=== PATIENT | female | born 1955 | race Caucasian/White ===

== ENCOUNTER → 2021-10-04 | Outpatient (CLI) | payer MEDICARE, OTHER ==
[~2021-10-04] VITALS: Ht 167 cm; Wt 100.0 kg
[~2021-10-04] MED LIST: CATHETER FLUSH 10 ML SYR IVP PRN; REGADENOSON 0.4 MG/5 ML SYR (LEXISCAN) IV ONE
[2021-10-04 09:24] VITALS: BP 176/105
--- NOTE | 2021-10-04 12:01 | Cardiology Stress Test Report ---
Stress Test Report Date of Procedure/Referring: Date of Procedure: Oct 04, 2021 PCP Chino Edmond DO Admitting Physician Admitting Physician: Attending Physician: Mk Kong MD Indications: CP Baseline Heart Rate: 58 Baseline Blood Pressure: Blood Pressure Systolic: 176 Blood Pressure Diastolic: 105 Baseline Vitals Vital Signs Date Time Temp Pulse Resp B/P (MAP) Pulse Ox O2 Delivery O2 Flow Rate FiO2 10/04/21 09:24 58 176/105 (128) 98 Baseline EKG: Baseline EKG: NSR Summary After explaining the procedure to the patient, she signed a consent and then brought to the stress nuclear laboratory. Patient received 0.4 mg Lexiscan for stress test, ECG, heart rate and blood pressure were monitored continuously. Resting and stress dose of radio tracer were injected, imaging was acquired and reviewed in short axis, horizontal long axis and vertical long axis views. TID: 0.97 SSS: 4 SDS: 4 EF: 69 1. Patient tolerated Lexiscan well 2. No significant ischemia or infarction on SPECT images 3. Normal left ventricular size, ejection fraction 69% Copy Copies To 1: [facility] [place] MK KONG MD Oct 04, 2021 12:01
== END ==
LOC: CARD 07:20
PROVIDERS: ATTEND Internal Medicine Cardiovascular Disease
DX: I25.10 Atherosclerotic heart disease of native coronary artery without angina pectoris (principal); I10 Essential (primary) hypertension
CPT/HCPCS: 78452; 93017; A9502

== ENCOUNTER → 2021-10-04 | Outpatient (CLI) | payer MEDICARE, OTHER ==
--- NOTE | 2021-10-04 12:41 | Diagnostic Imaging Report ---
PROCEDURE: CT right lower extremity without contrast. TECHNIQUE: Axially acquired CT was obtained through the right lower extremity without intravenous contrast. Coronal and sagittal reformations were also performed. Auto Exposure Controls were utilized during the CT exam to meet ALARA standards for radiation dose reduction. INDICATION: Right knee pain. Operative planning CT. COMPARISON: None available. FINDINGS: Axial imaging through the right knee shows tricompartmental degenerative changes. Small knee joint effusion. No concerning osseous or soft tissue abnormality. Subchondral cystic changes present in the proximal tibia. Additional limited axial imaging within the femoral shaft and right hip are unremarkable. Right ankle is grossly normal. IMPRESSION: 1. Operative planning CT has no unexpected abnormality. 2. Right knee tricompartmental osteoarthritis. Dictated by: Dictated on workstation # [id number]
== END ==
LOC: RAD 07:45
PROVIDERS: ATTEND Orthopaedic Surgery
DX: M17.11 Unilateral primary osteoarthritis, right knee (principal)
CPT/HCPCS: 73700

== ENCOUNTER → 2021-10-20 | Outpatient (CLI) | payer MEDICARE, OTHER ==
[~2021-10-20] MED LIST changes: +ATOR40TA PO; -CATHETER FLUSH 10 ML SYR IVP PRN; +ENZY1TAB4 PO; +ESTR1TAB27 PO; +HYDR25TA4 PO; +LEVO50TA PO; +MELA5CAP PO; +MONT10TA21 PO; +MULT-228 PO; +POTA8CAP20 PO; -REGADENOSON 0.4 MG/5 ML SYR (LEXISCAN) IV ONE; +SERT100T PO
--- NOTE | 2021-10-20 11:29 | Diagnostic Imaging Report ---
INDICATION: Preop knee arthroplasty, degenerative joint disease PA and lateral chest Heart size and pulmonary vascularity are normal. Lungs are clear. There are no effusions or pneumothoraces. There is a small sliding hiatal hernia. IMPRESSION: No acute abnormalities in the chest. Dictated by: Dictated on workstation # [id number]
[2021-10-20 11:31] VITALS: BP 138/85
[2021-10-20 11:33] LABS: BASOPHILS # (AUTO) 0.1 10^3/uL (0.0-0.1); BASOPHILS % (AUTO) 1 % (0-10); BILIRUBIN,URINE NEGATIVE (NEGATIVE); CLARITY,URINE CLEAR; COLOR,URINE YELLOW; EOSINOPHILS # (AUTO) 0.1 10^3/uL (0.0-0.3); EOSINOPHILS % (AUTO) 1 % (0-10); GLUCOSE, URINE (UA) NEGATIVE (NEGATIVE); HEMATOCRIT 44 % (35-52); HEMOGLOBIN 14.5 g/dL (11.5-16.0); KETONES,URINE NEGATIVE (NEGATIVE); LEUKOCYTE ESTERASE ,URINE NEGATIVE (NEGATIVE); LYMPHOCYTES # (AUTO) 1.2 10^3/uL (1.0-4.0); LYMPHOCYTES % (AUTO) 17 % (12-44); MEAN CORPUSCULAR HEMOGLOBIN 31 pg (25-34); MEAN CORPUSCULAR HGB CONC 33 g/dL (32-36); MEAN CORPUSCULAR VOLUME 94 fL (80-99); MEAN PLATELET VOLUME 9.9 fL (9.0-12.2); MONOCYTES # (AUTO) 0.4 10^3/uL (0.0-1.0); MONOCYTES % (AUTO) 5 % (0-12); NEUTROPHILS # (AUTO) 5.7 10^3/uL (1.8-7.8); NEUTROPHILS % (AUTO) 76 % (42-75); NITRITE,URINE NEGATIVE (NEGATIVE); PH,URINE 5.5 (5-9); PLATELET COUNT 225 10^3/uL (130-400); PROTEIN,URINE NEGATIVE (NEGATIVE); WHITE BLOOD COUNT 7.5 10^3/uL (4.3-11.0)
[2021-10-20 11:46] LABS: BACTERIA,URINE NEGATIVE /HPF; INR 0.9 (0.8-1.4); PROTHROMBIN TIME PATIENT 12.3 SEC (12.2-14.7); SQUAMOUS EPITHELIAL CELL,UR RARE /HPF
[2021-10-20 11:53] LABS: ALBUMIN 3.9 GM/DL (3.2-4.5); BILIRUBIN,TOTAL 0.6 MG/DL (0.1-1.0); CALCIUM 9.8 MG/DL (8.5-10.1); CREATININE SERUM 0.76 MG/DL (0.60-1.30); POTASSIUM 3.5 MMOL/L (3.6-5.0); TOTAL PROTEIN 7.2 GM/DL (6.4-8.2)
[2021-10-20 12:02] LABS: ERYTHROCYTE SEDIMENTATION RATE 24 MM/HR (0-30)
== END ==
LOC: PREOP 09:51
PROVIDERS: ATTEND Orthopaedic Surgery
DX: Z01.818 Encounter for other preprocedural examination (principal); M17.11 Unilateral primary osteoarthritis, right knee
CPT/HCPCS: 36415; 71046; 80053; 81000; 85025; 85610; 85652; 86850; 86900; 86901; 87081; 93005

== ENCOUNTER 2021-10-27 07:20 | Inpatient (IN) | payer MEDICARE, OTHER ==
--- NOTE | 2021-10-21 07:14 | HISTORY AND PHYSICAL ---
DATE OF SERVICE: ADMISSION HISTORY AND PHYSICAL DATE OF ADMISSION: 10/27/2021. This will be for inpatient admission on 10/27/2021 for right total knee arthroplasty. The patient will require regular inpatient admission due to the need for pain management, physical therapy and gait abnormalities. HISTORY OF PRESENT ILLNESS: The patient is a 66-year-old female with a longstanding progressive right knee pain. She reports pain on the medial aspect of her right knee. She reports pain with activities. She has undergone treatment with injections without relief of her symptoms. Due to failure to improve with the conservative measures, the patient elected to proceed with surgical intervention. REVIEW OF SYSTEMS: No chest pain, no shortness of breath, and no dysuria. PAST MEDICAL HISTORY: Reflux, hypertension, hemorrhoids, hiatal hernia, thyroid disease, anemia, diarrhea, diverticulitis, allergies abdominal pain, hypercholesterolemia, hypokalemia, claudication, menopause, and myocardial infarction. PAST SURGICAL HISTORY: Hysterectomy, EGD, colonoscopy, and laparoscopy. SOCIAL HISTORY: The patient denies tobacco use. She drinks alcohol rarely. FAMILY HISTORY: Significant for ischemic heart disease, lupus, and stroke. PRIMARY CARE PROVIDER: Chino Edmond. MEDICATIONS: Estrace, Zoloft, potassium, multivitamin, ibuprofen, hydrochlorothiazide, atorvastatin, montelukast, and Synthroid. ALLERGIES: STEROIDS. PHYSICAL EXAMINATION: GENERAL: The patient is well-developed, well-nourished, and in no acute distress. HEENT: Normocephalic and atraumatic. Pupils are equal, round, and reactive to light. Oropharynx is clear. NECK: Supple with no lymphadenopathy. LUNGS: Clear to auscultation bilaterally. HEART: Regular rate and rhythm. ABDOMEN: Soft, nontender, and nondistended. EXTREMITIES: The right knee demonstrates tenderness over the medial femoral condyle. She has pain medially with José's. There is no varus valgus laxity. Negative anterior and posterior drawer. She is also tender along her lateral joint line. Range of motion is 0/3/120. She has patellofemoral crepitus and pain with patellar loading. RADIOGRAPHS: Reveal complete loss of lateral and patellofemoral joint spaces. IMPRESSION: Due to functional impairment and failure to improve with conservative measures, the patient elected to proceed with surgical intervention. The risks, benefits, options, ramifications, and recovery were discussed with the patient. She understands and wished to proceed for a right total knee arthroplasty. Job ID: [id number] DocumentID: [id number] Dictated Date: 10/11/2021 10:31:35 Flight Test Shop Mechanic Date: 10/11/2021 11:07:18 Dictated By: LETY NIÑO MD
[2021-10-27] VITALS (10 sets, daily range): BP systolic 133–198; BP diastolic 81–99
[~2021-10-27] VITALS: Ht 167.7 cm; Wt 105.4 kg
[2021-10-27] MEDS ORDERED: diphenhydrAMINE 50 MG/ML INJ (BENADRYL) IVP PRN (07:30)
[2021-10-27] MEDS ORDERED: morphine PCA 100 MG/100 ML BAG IV PRN (07:30)
[2021-10-27] MEDS ORDERED: ONDANSETRON 4 MG/2 ML (SDV) Z0FRAN IVP PRN (07:30)
--- NOTE | 2021-10-27 07:33 | Progress Note-Pre Operative ---
Pre-Operative Progress Note Date of Available H&P: Oct 27, 2021 Date H&P Reviewed: Oct 27, 2021 Time H&P Reviewed: 07:33 Changes from last HP none Pre-Operative Diagnosis: right knee primary osteoarthritis LETY NIÑO MD Oct 27, 2021 07:33
--- NOTE | 2021-10-27 07:34 | Progress Note-Post Operative ---
Post-Operative Progess Note Surgeon (s)/Back Pad Inspector (s) Surgeon LETY NIÑO MD Back Pad Inspector: Gabino Rosenbaum Pre-Operative Diagnosis right knee primary osteoarthritis Post-Operative Diagnosis right knee primary osteoarthritis Procedure & Operative Findings Date of Procedure 10/27/21 Procedure Performed/Findings right total knee arthroplasty Anesthesia Type GETA Estimated Blood Loss Estimated blood loss (mL): minimal Specimens/Packing Specimens Removed none Packing: none LETY NIÑO MD Oct 27, 2021 07:34
--- NOTE | 2021-10-27 07:36 | D/C HH Face to Face Order ---
D/C Face to Face Orders Reconcile Patient Problems Problems Reviewed?: Yes Instructions for Patient Via [facility], Patient Instructions/FollowUp: three weeks Physician to follow Patient: three weeks Discharge Diet for Home: Regular Diet Patient Data-Allergies,Ht & Wt Patient Allergies: Coded Allergies: prednisone (Unverified Allergy, Unknown, 10/04/21) Home Health Need/Face to Face Date of Face to Face: Oct 27, 2021 Clinical Findings: Muscle weakness, Pain with ambulation, Unsteady gait I have seen Pt [id number]: Yes Discharged To: Home Diagnosis/Conditions: right total knee arthroplasty Patient is Homebound due to: Muscle weakness, Pain w/ambulation Homebound Status Due to the above stated illness, injury or surgical procedure (medical condition or diagnosis) and associated clinical findings, the patient is homebound because of his/her inability to leave home except with aid of a supportive device and/or person AND leaving the home requires a considerable and taxing effort or is medically contraindicated. Pt req the following assistanc: Walker Home Health Nursing Orders Home Health Services Order: Physical Therapy-Evaluate & Treat DC right knee bria and apply steri strips 11/10/21 Therapy Orders Therapy Orders: Physical Therapy, PT to assess for OT Therapy Specific Orders: Eval assistive deivces, Teach enviro modifications/safety, Gait training, Increase strength/endurance, Provider torsten ntenance therapy, Restore ROM Certify Stmt I certify that this patient is under my care and that I, a nurse practitioner or a physician; a cement tester assistant working with me, had a face to face encounter that - meets the physician face to face encounter requirements with this patient as dated. LETY NIÑO MD Oct 27, 2021 07:36
[2021-10-27] MEDS ORDERED: INTRA-ARTICULAR IU ONE ×5 (07:45)
[2021-10-27] MEDS ORDERED: CEFUROXIME INJECTION 1,500 MG in NS (IVPB) 50 ML IV ONE (08:00)
[2021-10-27] MEDS ORDERED: LACTATED RINGERS 1,000 ML IV PRN (08:00)
[2021-10-27] MEDS ORDERED: fentaNYL INJ 100 MCG/2 ML AMP ONE (08:02)
[2021-10-27] MEDS ORDERED: ROPIVACAINE 5MG/ML 30ML VIAL ONE (08:02)
[2021-10-27] MEDS ORDERED: proPOfol 200 MG/20 ML (DIPRIVAN) VIAL IV ONE (08:02)
[2021-10-27] MEDS ORDERED: LIDOCAINE PF 2% 5 ML (XYLOCAINE) VIAL ONE (08:02)
[2021-10-27] MEDS ORDERED: MIDAZOLAM 2 MG/2 ML (VERSED) VIAL ONE (08:03)
[2021-10-27] MEDS: SENNA W/DOCUSATE (SENOKOT S) TABLET PO SCH ×2 (09:00→20:50)
[2021-10-27] MEDS ORDERED: ONDANSETRON 4 MG/2 ML (SDV) Z0FRAN ONE (09:15)
[2021-10-27] MEDS ORDERED: TRANEXAMIC ACID 100 MG/ML 10 ML INJECTION ONE (09:36)
[2021-10-27] MEDS ORDERED: HYDROmorphone 2 MG/ML VIAL (DILAUDID) ONE (09:50)
[2021-10-27] MEDS ORDERED: GLYCOPYRROLATE 0.2 MG/ML (ROBINUL) 2 ML VIAL ONE (09:56)
[2021-10-27] MEDS ORDERED: SEVOFLURANE (ULTANE) 15 ML INHAL SOLN ONE (10:43)
[2021-10-27] MEDS ORDERED: HYDROmorphone 2 MG/ML VIAL (DILAUDID) IV ONE (11:00)
[2021-10-27] MEDS ORDERED: morphine INJ 10 MG/ML 1ML (SYR OR VIAL) IVP ONE (11:00)
[2021-10-27] MEDS: ONDANSETRON 4 MG/2 ML (SDV) Z0FRAN IVP PRN ×2 (11:11→11:33)
[2021-10-27] MEDS: NS IV 1000 ML 1,000 ML IV SCH (12:08)
--- NOTE | 2021-10-27 12:37 | Progress Note ---
Standard Progress Note Progress Notes/Assess & Plan Date Seen by a Provider: Oct 27, 2021 Time Seen by a Provider: 12:36 Progress/Assessment & Plan post op check no complaints RLE--2 plus DP pulse with brisk cap refill intact DF and PF of toes and ankle sensation intac to light touch throughout s/p R TKA mobilize as able LETY NIÑO MD Oct 27, 2021 12:37
[2021-10-27] MEDS ORDERED: hydrALAZINE (APESOLINE) 20 MG/ML VIAL IV PRN (12:45)
--- NOTE | 2021-10-27 13:07 | Diagnostic Imaging Report ---
INDICATION: Status post knee replacement. COMPARISON: None. FINDINGS: Multiple radiographic views of the right knee joint demonstrate no acute fracture or dislocation. No focal osseous lesions are seen. No significant joint effusion is seen. The surrounding soft tissue structures are unremarkable. There are no radiopaque foreign bodies. Surgical skin bria are noted. IMPRESSION: 1. No acute fractures or dislocations of the right knee joint. Dictated by: Dictated on workstation # [id number]
--- NOTE | 2021-10-27 14:13 | Physical Therapy Evaluation ---
PT Evaluation-General Medical Diagnosis Admission Date Oct 27, 2021 at 07:20 Medical Diagnosis: right TKA Onset Date: Oct 27, 2021 Therapy Diagnosis Therapy Diagnosis: impaired mobility, ROM Weight Bear Status Right Lower Extremity: Right Weight Bearing/Tolerated Referral Physician: Robi Reason for Referral: Evaluation/Treatment Medical History Additional Medical History PAST MEDICAL HISTORY: Reflux, hypertension, hemorrhoids, hiatal hernia, thyroid disease, anemia, diarrhea, diverticulitis, allergies abdominal pain, hypercholesterolemia, hypokalemia, claudication, menopause, and myocardial infarction. PAST SURGICAL HISTORY: Hysterectomy, EGD, colonoscopy, and laparoscopy. Reviewed History: Yes Social History Current Living Status: Spouse Entry Into Home: Level Entry Patient states that there is one step to enter home, says there is only a threshold to get over. Prior Prior Level of Function SCALE: Activities may be completed with or without assistive devices. 8-Tnlasiaxip-btmcorn completes the activity by him/herself with no assistance from a helper. 5-Set-up or Clean-up Assistance-helper sets up or cleans up; patient completes activity. [place] assists only prior to or following the activity. 4-Supervision or Touching Assistance-helper provides verbal cues and/or touching/steadying and/or contact guard assistance as patient completes activity. Assistance may be provided throughout the activity or intermittently. 3-Partial/Moderate Assistance-helper does LESS THAN HALF the effort. [place] lifts, holds or supports trunk or limbs, but provides less than half the effort. 2-Substantial/Maximal Assistance-helper does MORE THAN HALF the effort. [place] lifts or holds trunk or limbs and provides more than half the effort. 2-Ijxljilvj-cbbgny does ALL the effort. Patient does none of the effort to complete the activity. Or, the assistance of 2 or more helpers is required for the patient to complete the activity. If activity was not attempted, code reason: 7-Patient Refused. 9-Not Applicable-not attempted and the patient did not perform the activity before the current illness, exacerbation or injury. 10-Not Attempted due to Environmental Limitations-(lack of equipment, weather restraints, etc.). 88-Not Attempted due to Medical Conditions or Safety Concerns. Bed Mobility: 6 Transfers (B,C,W/C): 6 Gait: 6 Stairs: 6 Indoor Mobility (Ambulation): Independent Stairs: Independent PT Evaluation-Current Subjective Patient in bed pre tx, agrees to PT, has 2/10 pain in right knee. Pt/Family Goals to be independent at home Objective Patient Orientation: Person, Place, Situation Attachments: IV ROM/Strength ROM Lower Extremities right knee extension +3 degrees, flexion 75 degrees Sensory Vision: Wears Glasses Hearing: Functional Sensation Right Lower Extremit: Intact Sensation Left Lower Extremity: Intact Transfers Roll Left to Right (QC): 4 Sit to Lying (QC): 4 Lying to Sitting/Side of Bed(Q: 4 Sit to Stand (QC): 3 Chair/Dhs-aw-Stzmi Xfer(QC): 4 Toilet Transfer (QC): 4 Patient performs rolling and supine <-> sit with SBA, sit <-> stand min assist, transfers CGA. Patient sits to the side of the bed and stands with assist, ambulates to the restroom to the toilet, when done, she ambulates back to the bed, sits, and lays back down. Gait Does the Patient Walk?: Yes Mode of Locomotion: Walk Anticipated Mode of Locomotion: Walk Walk 10 feet (QC): 4 Distance: 10'x2 Gait Assistive Device: FWW Comments/Gait Description CGA, antalgic, slow, decreased weight bearing on right leg, poor step through Balance Sitting Static: Normal Sitting Dynamic: Normal Standing Static: Fair Standing Dynamic: Fair Treatment RLE total knee protocol x10 (AP, QS, HS, SAQ, SLR) Assessment/Needs Patient in bed post tx with nurse call, phone, tray, all needs met. Patient has impaired mobility, ROM, needs some assist to stand. Rehab Potential: Fair PT Usp Goals Employer Relations Representative Goals PT Employer Relations Representative Goals Time Frame: Nov 03, 2021 Roll Left & Right (QC): 6 Sit to Lying (QC): 6 Lying-Sitting on Side/Bed(QC): 6 Sit to Stand (QC): 6 Chair/Jlt-jd-Lpefg Xfer(QC): 6 Walk 10 feet (QC): 6 Walk 50ft with 2 Turns (QC): 6 Walk 150 ft (QC): 6 PT Plan Problem List Problem List: Activity Tolerance, Functional Strength, Safety, Balance, Gait, Transfer, Bed Mobility, ROM Treatment/Plan Treatment Plan: Continue Plan of Care Treatment Plan: Bed Mobility, Education, Functional Activity Ryan, Functional Strength, Gait, Safety, Therapeutic Exercise, Transfers Treatment Duration: Nov 03, 2021 Frequency: 11 times per week Estimated Hrs Per Day: .25 hour per day Patient and/or Family Agrees t: Yes Safety Risks/Education Patient Education: Gait Training, Transfer Techniques, Correct Positioning, Safety Issues Teaching Recipient: Patient Teaching Methods: Demonstration, Discussion Response to Teaching: Reinforcement Needed Discharge Recommendations Plan Patient will perform bed mobility and transfer training, balance and endurance training, functional strengthening, stair training, gait training, and education, to improve functional mobility and independence at home. Therapy Discharge Recommendati: Home & Family, Post Acute PT Time/GCodes Time In: 1330 Time Out: 1350 Total Billed Treatment Time: 20 Total Billed Treatment 1 visit EVL 20' TIANNA BAUTISTA PT Oct 27, 2021 14:13
--- NOTE | 2021-10-27 15:34 | OPERATIVE REPORT ---
DATE OF SERVICE: 10/27/2021 PREOPERATIVE DIAGNOSIS: Right knee primary osteoarthritis. POSTOPERATIVE DIAGNOSIS: Right knee primary osteoarthritis. PROCEDURE: Right total knee arthroplasty. SURGEON: Cade Barclay MD BLACK TOP PAVER OPERATOR: Gabino Rosenbaum, who assisted throughout the procedure and closed the incision. ANESTHESIA: General endotracheal by Elliott Hutchinson CRNA. TOURNIQUET TIME: Approximately 60 minutes at 300 mmHg. ESTIMATED BLOOD LOSS: Minimal. DRAINS: None. COMPLICATIONS: None. POSTOPERATIVE PLAN: Routine protocol. The patient was transferred to the recovery room awake and stable condition. MATERIALS: Microport cemented size 3 femur, cemented size 3 tibia with 17 mm insert and a cemented 29 patellar button. STATEMENT OF MEDICAL NECESSITY: The patient is a 66-year-old female with longstanding progressive right knee pain. She has undergone treatment with injections, anti-inflammatories and rest without relief. Radiographs revealed severe tricompartmental osteoarthritis. The patient was overweight and was cautioned that she was at higher risk of complications due to her weight. Due to functional impairment and failure to improve with conservative measures, the patient elected to proceed with surgical intervention. DESCRIPTION OF PROCEDURE: After risks and benefits of the procedure were discussed and questions were answered, an informed consent was signed and placed on chart, the operative site was confirmed in the preoperative holding area initialed by the surgeon. The patient was then transferred to the operating room and after adequate levels of general endotracheal anesthetic were obtained, a timeout was called, confirming the operative site. The right lower extremity was prepped and draped in the usual sterile fashion with the leg elevated and the knee flexed. The tourniquet was inflated to 300 mmHg. Standard anterior approach was utilized. Hemostasis was obtained with cautery and medial parapatellar arthrotomy was performed leaving 1 cm cuff on the patella for later reattachment. A portion of the fat pad was resected. The ACL was resected. The CT degenerated custom block was placed on the distal femur. Excellent fit was obtained. This was then pinned into position and the distal cut was made. The cutting block was placed parallel to the epicondylar axis and cuts were made from posterior to anterior. Subperiosteal release was then carefully performed on the posterior distal femur, being careful to stay on the bony surface. The tibial cutting block was placed and again this had excellent coverage. This was pinned into position and the tibial cut was made. The three baseplate was placed, pinned into position and prepared with the drill and keel punch. The femoral trial was placed. The trochlear cut was made, and the patella was then prepared by resecting 10 mm off the undersurface. The peg guide was placed, and peg holes were drilled. A 17 mm tibial insert provided full extension. Her flexion was only inhibited by her pannus. There was no anterior/posterior or medial/lateral laxity in flexion or extension and the patella tracked well. The trials were removed. The joint was irrigated with pulse lavage. The periarticular block was placed in the posterior capsule, medial and lateral retinaculum extensor mechanism and subcutaneous tissues. The bone ends were irrigated and dried. The tibial baseplate was cemented into position. Excessive cement was removed, the superior surface was irrigated and dried and the polyethylene insert was placed. Distal femur was irrigated and dried and the femoral prosthesis was cemented into position. Excessive cement was removed. The knee was brought out into full extension until the cement had cured. The undersurface of patella was irrigated and dried and the patellar button was cemented into position. Excessive cement was removed. Once the cement had cured, the knee was taken through a range of motion. Full extension was easily obtained, 120 degrees of flexion was obtained against gravity. The patella tracked well. There was no anterior/posterior or medial/lateral laxity in flexion or extension. The joint was further irrigated with pulse lavage. Arthrotomy was closed with #2 Tevdek in zotwkk-rm-etqec interrupted fashion. The knee was flexed and repair was stable. The subcutaneous tissues were irrigated using a total of 6 liters throughout the procedure. A 0 Vicryl was used for deep subcutaneous layer, 2-0 Vicryl for the superficial subcutaneous layer, bria used on the skin. A soft dressing was applied and the patient was transferred to the recovery room awake and in stable condition. Job ID: [id number] DocumentID: [id number] Dictated Date: 10/27/2021 10:50:51 Principal Research Economist Date: 10/27/2021 15:33:09 Dictated By: CADE BARCLAY MD
[2021-10-27] MEDS: CEFUROXIME INJECTION 750 MG in NS (IVPB) 50 ML IV SCH ×2 (17:02→18:04)
--- NOTE | 2021-10-27 19:58 | Consultation - Hospitalist ---
HPI History of Present Illness: HPI/Chief Complaint Lalo Monet is a 66 year old female with PMH HTN, HLD, hypothyroidism, depression, arthritis, who presented for total knee arthroplasty. She was seen post-operatively. She is tired. She is having some pain. She denies fevers and chills. She denies shortness of breath and cough. She denies chest pain. She denies abdominal pain. She denies nausea and vomiting. Source: patient Exam Limitations: no limitations Date Seen 10/27/21 Attending Physician Chino Edmond DO PCP Admitting Physician: Cade Barclay MD Attending Physician: Cade Barclay MD Referring Physician Date of Admission Oct 27, 2021 at 07:20 Home Medications & Allergies Home Medications Reviewed patient Home Medication Reconciliation performed by pharmacy medication reconciliations trim technician and/or nursing. Patients Allergies have been reviewed. Allergies Allergies Coded Allergies prednisone (Unverified Allergy, Unknown, 10/04/21) Past Lhzgotx-Elvmpb-Lehvwr Hx Patient Social History Tobacco Use?: No Substance use?: No Alcohol Use?: Yes Pt feels they are or have been: No Seasonal Allergies Seasonal Allergies: No Current Status status: No status: No Advance Directives: No Communicates: Verbally Primary Language: Citizen Of [place] Preferred Spoken Language: Citizen Of [place] Is interpretation needed?: No Sensory deficits: Vision impairment Past Medical History Surgeries: Gallbladder, Hysterectomy, Tubal Ligation Hypertension Hiatal Hernia Arthritis Sleep Difficulties, Anxiety, Depression Blood Disorders: No (BURISES EASILY) Family Medical History No Pertinent Family Hx Review of Systems Constitutional: no symptoms reported EENTM: no symptoms reported Respiratory: no symptoms reported Cardiovascular: no symptoms reported Gastrointestinal: no symptoms reported Physical Exam Physical Exam Vital Signs Vital Signs - First Documented Capillary Refill : Less Than 3 Seconds Height, Weight, BMI Height: '" Weight: lbs. oz. kg; 37.47 BMI Method: General Appearance: No Apparent Distress, Obese HEENT: PERRL/EOMI, Pharynx Normal Respiratory: Lungs Clear, No Respiratory Distress Cardiovascular: Regular Rate, Rhythm, No Murmur Gastrointestinal: Normal Bowel Sounds, Non Tender, Soft Extremity: Normal Inspection, No Pedal Edema Neurologic/Psychiatric: Alert, Normal Mood/Affect Skin: Normal Color, Warm/Dry Results Results/Procedures Labs Patient resulted labs reviewed. Imaging: Reviewed Imaging Report Assessment/Plan Assessment and Plan Assess & Plan/Chief Complaint Right total knee arthroplasty Right knee osteoarthritis Ortho primary s/p TKA 10/27 Pain regimen Bowel regimen Incentive spirometry PT/OT HTN HLD Hypothyroidism Depression Continue home meds DVT prophylaxis: Lovenox Diagnosis/Problems Diagnosis/Problems (1) Osteoarthritis Status: Acute Qualifiers: Osteoarthritis location: knee Osteoarthritis type: primary Laterality: right Qualified Codes: M17.11 - Unilateral primary osteoarthritis, right knee (2) S/P total knee arthroplasty Status: Acute Qualifiers: Laterality: right Qualified Codes: Z96.651 - Presence of right artificial knee joint (3) HTN (hypertension) Status: Chronic (4) HLD (hyperlipidemia) Status: Chronic (5) Depression Status: Chronic (6) Hypothyroidism Status: Chronic (7) Obesity Status: Chronic PAOLA MENDOZA MD Oct 27, 2021 19:58
[2021-10-28] VITALS (7 sets, daily range): BP systolic 120–168; BP diastolic 71–84
[2021-10-28] MEDS: NS IV 1000 ML 1,000 ML IV SCH ×3 (01:01→14:15)
[2021-10-28] MEDS: CEFUROXIME INJECTION 750 MG in NS (IVPB) 50 ML IV SCH (01:01)
[2021-10-28] MEDS: MULTIVIT W/MINERALS TAB (THERAGRAN M) PO SCH (05:43)
[2021-10-28] MEDS: LEVOTHYROXINE 50 MCG (LEVOTHROID) TAB PO SCH (05:43)
[2021-10-28 05:58] LABS: HEMOGLOBIN 12.5 g/dL (11.5-16.0)
--- NOTE | 2021-10-28 07:43 | Progress Note ---
Standard Progress Note Progress Notes/Assess & Plan Date Seen by a Provider: Oct 28, 2021 Time Seen by a Provider: 07:43 Progress/Assessment & Plan post op check no complaints RLE--2 plus DP pulse with brisk cap refill intact DF and PF of toes and ankle sensation intac to light touch throughout s/p R TKA mobilize as able Final Diagnosis no complaints Vital Signs Date Time Temp Pulse Resp B/P (MAP) Pulse Ox O2 Delivery O2 Flow Rate FiO2 10/28/21 06:43 Room Air 0.00 10/28/21 04:10 36.8 86 18 131/78 (95) 90 Room Air 10/28/21 00:21 36.8 84 18 137/84 (101) 92 Room Air 10/27/21 20:38 Room Air 10/27/21 19:54 36.5 81 20 133/82 (99) 91 Room Air 10/27/21 15:39 36.6 76 18 136/84 (101) 95 Room Air 10/27/21 15:22 Room Air 10/27/21 12:36 36.2 82 18 164/96 (118) 98 Room Air 10/27/21 11:45 Nasal Cannula 2.00 10/27/21 11:36 36.1 14 165/86 (112) 98 Nasal Cannula 2.00 10/27/21 11:30 18 177/93 (121) 97 Nasal Cannula 2.00 10/27/21 11:30 Nasal Cannula 2.00 10/27/21 11:20 12 160/90 (113) 97 OxyMask 10.00 10/27/21 11:15 OxyMask 10.00 10/27/21 11:10 12 181/98 (125) 95 OxyMask 10.00 10/27/21 11:00 13 190/99 (129) 94 OxyMask 10.00 10/27/21 10:50 OxyMask 10.00 10/27/21 10:50 36.1 16 198/98 (131) 93 OxyMask 10.00 10/27/21 07:45 96 Room Air 10/27/21 07:45 36.3 67 18 146/81 (102) 96 Room Air I & O 10/28/21 06:59 Intake Total 1520 ml Output Total 0 ml Balance 1520 ml Laboratory Tests Test 10/28/21 05:49 Range/Units Hemoglobin 12.5 11.5-16.0 g/dL Hematocrit 39 35-52 % RLE--dressing intact. NVI no calf tenderness s/p RTKA PT/OT LETY NÑIO MD Oct 28, 2021 07:43
--- NOTE | 2021-10-28 07:51 | Anesthesia-General Post-Op ---
General Patient Condition Mental Status/LOC: Same as Preop Cardiovascular: Satisfactory Nausea/Vomiting: Absent Respiratory: Satisfactory Pain: Controlled Complications: Absent Post Op Complications Complications None Follow Up Care/Instructions Patient Instructions None needed. Anesthesia/Patient Condition Patient Condition Patient is doing well, no complaints, stable vital signs, no apparent adverse anesthesia problems. No complications reported per nursing. ALY DORANTES CRNA Oct 28, 2021 07:51
[2021-10-28] MEDS: MONTELUKAST 10 MG (SINGULAIR) TAB PO SCH (08:53)
[2021-10-28] MEDS: ENOXAPARIN INJECTION 30 MG/0.3 ML SYR SC SCH ×2 (08:53→20:00)
[2021-10-28] MEDS: ESTRADIOL 1 MG TAB (ESTRACE) PO SCH (08:53)
[2021-10-28] MEDS: SERTRALINE 100 MG (ZOLOFT) TAB PO SCH (08:53)
[2021-10-28] MEDS: SENNA W/DOCUSATE (SENOKOT S) TABLET PO SCH ×2 (08:54→19:59)
[2021-10-28] MEDS: ASPIRIN E.C. 81 MG (ECOTRIN) TAB PO SCH (08:54)
[2021-10-28] MEDS: oxyCODONE/APAP 5/325MG (PERCOCET 5) TABLET PO PRN ×4 (09:00→17:25)
--- NOTE | 2021-10-28 09:57 | Physical Therapy Daily Note ---
PT Daily Note-Current Subjective Patient agrees to PT. Pain Numeric Pain Scale: 5-Moderate Pain Location: Right Location Body Site: Knee Pain Description: Acute Comment: with meds issued Mental Status Patient Orientation: Normal For Age Attachments: Polar Pack, IV Transfers SCALE: Activities may be completed with or without assistive devices. 5-Iutqhmndem-eyjufkt completes the activity by him/herself with no assistance from a helper. 5-Set-up or Clean-up Assistance-helper sets up or cleans up; patient completes activity. [place] assists only prior to or following the activity. 4-Supervision or Touching Assistance-helper provides verbal cues and/or touching/steadying and/or contact guard assistance as patient completes activity. Assistance may be provided throughout the activity or intermittently. 3-Partial/Moderate Assistance-helper does LESS THAN HALF the effort. [place] lifts, holds or supports trunk or limbs, but provides less than half the effort. 2-Substantial/Maximal Assistance-helper does MORE THAN HALF the effort. [place] lifts or holds trunk or limbs and provides more than half the effort. 4-Nmhwolkpv-uhklui does ALL the effort. Patient does none of the effort to complete the activity. Or, the assistance of 2 or more helpers is required for the patient to complete the activity. If activity was not attempted, code reason: 7-Patient Refused. 9-Not Applicable-not attempted and the patient did not perform the activity before the current illness, exacerbation or injury. 10-Not Attempted due to Environmental Limitations-(lack of equipment, weather restraints, etc.). 88-Not Attempted due to Medical Conditions or Safety Concerns. Lying to Sitting/Side of Bed(Q: 6 Sit to Stand (QC): 4 Chair/Yhd-xx-Gxpyq Xfer(QC): 4 Weight Bearing Right Lower Extremity: Right Weight Bearing/Tolerated Gait Training Distance: 150' Walk 10 feet (QC): 4 Walk 50 ft with 2 Turns(QC): 4 Walk 150 ft (QC): 4 Gait Assistive Device: FWW slow, antalgic, step to gait pattern Exercises Supine Ex: Ankle pumps, Quad Set, Heel Slides, Straight leg raise Supine Reps: 15 Seated Therapy Exercises: Long arc quads Seated Reps: 15 Assessment Patient progressing with treatment plan. Improving slow with right knee flexion ROM. Increase activity and ROM right knee as tolerated by patient. PT Usp Goals Usp Goals PT Electrogalvanizing Machine Operator Goals Time Frame: Nov 03, 2021 Roll Left & Right (QC): 6 Sit to Lying (QC): 6 Lying-Sitting on Side/Bed(QC): 6 Sit to Stand (QC): 6 Chair/Ntk-eo-Pfwwg Xfer(QC): 6 Walk 10 feet (QC): 6 Walk 50ft with 2 Turns (QC): 6 Walk 150 ft (QC): 6 PT Plan Treatment/Plan Treatment Plan: Continue Plan of Care Treatment Plan: Bed Mobility, Education, Functional Activity Ryan, Functional Strength, Gait, Safety, Therapeutic Exercise, Transfers Treatment Duration: Nov 03, 2021 Frequency: 11 times per week Estimated Hrs Per Day: .25 hour per day Patient and/or Family Agrees t: Yes Time/GCodes Time In: 855 Time Out: 918 Total Billed Treatment Time: 23 Total Billed Treatment 1 visit EX 13 min GT 10 min SUSAN HUERTA PT Oct 28, 2021 09:57
--- NOTE | 2021-10-28 10:57 | Occupational Therapy Eval ---
OT Evaluation-General/PLF Medical Diagnosis Admission Date Oct 27, 2021 at 07:20 Medical Diagnosis: right TKA Onset Date: Oct 27, 2021 Therapy Diagnosis Therapy Diagnosis: n/a Referral Physician: Robi Referral Reason: Evaluation/Treatment Medical History Additional Medical History HTN, hiatal hernia, thyroid disease, anemia, diarrhea, diverticulitis, allergies, [place] Current History s/p R TKA 10/27/21 Social History Current Living Status: Spouse Entry Into Home: Level Entry ADL-Prior Level of Function SCALE: Activities may be completed with or without assistive devices. 2-Rysaxzhffr-arhrfss completes the activity by him/herself with no assistance from a helper. 5-Set-up or Clean-up Assistance-helper sets up or cleans up; patient completes activity. [place] assists only prior to or following the activity. 4-Supervision or Touching Assistance-helper provides verbal cues and/or touching/steadying and/or contact guard assistance as patient completes activity. Assistance may be provided throughout the activity or intermittently. 3-Partial/Moderate Assistance-helper does LESS THAN HALF the effort. [place] lifts, holds or supports trunk or limbs, but provides less than half the effort. 2-Substantial/Maximal Assistance-helper does MORE THAN HALF the effort. [place] lifts or holds trunk or limbs and provides more than half the effort. 5-Hcxqxriwx-kljhxw does ALL the effort. Patient does none of the effort to complete the activity. Or, the assistance of 2 or more helpers is required for the patient to complete the activity. If activity was not attempted, code reason: 7-Patient Refused. 9-Not Applicable-not attempted and the patient did not perform the activity before the current illness, exacerbation or injury. 10-Not Attempted due to Environmental Limitations-(lack of equipment, weather restraints, etc.). 88-Not Attempted due to Medical Conditions or Safety Concerns. ADL PLOF Comments Pt reports IND with ADLs and functional mobility at [facility], no AD. She has a walk in shower with [place] Self Care: Independent Functional Cognition: Independent OT Current Status Subjective Pt and state they feel comfortable with pt's ability to complete ADLS, and decline further OT services at this time. Mental Status/Objective Patient Orientation: Person, Place, Situation Attachments: IV, Oxygen, Polar Pack Current Upper Extremity ROM WFL Upper Extremity Strength WFL ADL-Treatment Eating (QC): 6 On/Off Footwear (QC): 6 Toileting Hygiene (QC): 6 Other Treatments Pt in recliner, spouse present. Pt demo'd ability to doff/don gripper socks independently. Pt and report no concerns with pt returning home, if pt has any difficulties with ADLs, her spouse can assist. Pt used FWW to transfer into bathroom and onto toilet, SBA, OT managed IV pole. Pt completed toileting independently, then stood at sink to wash hands before returning to EOB. Pt transferred supine and polar pack applied to RLE. Post tx, pt in bed, call light in reach and al needs met. Education OT Patient Education: Correct positioning, Energy conservation, Modified ADL techniques, Progress toward Goal/Update tx plan, Purpose of tx/functional activities, Rehab process Teaching Recipient: Patient Teaching Methods: Discussion Response to Teaching: Verbalize Understanding OT Halfway Goals Kiln Firer Helper Goals 1=Demonstrate adherence to instructed precautions during ADL tasks. 2=Patient will verbalize/demonstrate understanding of assistive devices/amanda fications for ADL. 3=Patient will improve strength/tolerance for activity to enable patient to perform ADL's. OT Education/Plan Problem List/Assessment Assessment: No Skilled OT Needs ID'd No skilled OT services indicated at this time, as pt is independent with ADLs. Pt has good support at home, and spouse can assist pt as needed. Pt declined further OT services. D/C from OT. Discharge Recommendations Plan/Recommendations: Discharge/Goals Met Treatment Plan/Plan of Care Patient would benefit from OT for education, treatment and training to promote independence in ADL's, mobility, safety and/or upper extremity function for ADL's. Plan of Care: ADL Retraining, Functional Mobility Treatment Duration: Oct 28, 2021 Frequency: 1 time per week (eval only) Rehab Potential: Fair Time/GCodes Start Time: 10:14 Stop Time: 10:32 Total Time Billed (hr/min): 18 Billed Treatment Time 1KEV ADDISON OT Oct 28, 2021 10:57
--- NOTE | 2021-10-28 15:10 | Physical Therapy Daily Note ---
PT Daily Note-Current Subjective Patient agrees to PT. Pain Numeric Pain Scale: 6 Location: Right Location Body Site: Knee Pain Description: Acute Mental Status Patient Orientation: Normal For Age Attachments: IV Transfers SCALE: Activities may be completed with or without assistive devices. 3-Ffybuzqncw-ufjllvv completes the activity by him/herself with no assistance from a helper. 5-Set-up or Clean-up Assistance-helper sets up or cleans up; patient completes activity. [place] assists only prior to or following the activity. 4-Supervision or Touching Assistance-helper provides verbal cues and/or touching/steadying and/or contact guard assistance as patient completes activity. Assistance may be provided throughout the activity or intermittently. 3-Partial/Moderate Assistance-helper does LESS THAN HALF the effort. [place] lifts, holds or supports trunk or limbs, but provides less than half the effort. 2-Substantial/Maximal Assistance-helper does MORE THAN HALF the effort. [place] lifts or holds trunk or limbs and provides more than half the effort. 5-Zsztuuvgm-vmcgyw does ALL the effort. Patient does none of the effort to complete the activity. Or, the assistance of 2 or more helpers is required for the patient to complete the activity. If activity was not attempted, code reason: 7-Patient Refused. 9-Not Applicable-not attempted and the patient did not perform the activity before the current illness, exacerbation or injury. 10-Not Attempted due to Environmental Limitations-(lack of equipment, weather restraints, etc.). 88-Not Attempted due to Medical Conditions or Safety Concerns. Sit to Lying (QC): 6 Lying to Sitting/Side of Bed(Q: 6 Sit to Stand (QC): 6 Toilet Transfer (QC): 6 Weight Bearing Right Lower Extremity: Right Weight Bearing/Tolerated Gait Training Distance: 225' Walk 10 feet (QC): 4 Walk 50 ft with 2 Turns(QC): 4 Walk 150 ft (QC): 4 Gait Assistive Device: FWW slight trunk flexed posture with FWW use/antalgic but functional Exercises Supine Ex: Ankle pumps, Quad Set, Heel Slides, Straight leg raise Supine Reps: 15 Assessment Patient improving with treatment plan and will dismiss to home in a.m. with spouse and home health. Patient encouraged to perform exercises PRN and to ambulate in hallway with nursing staff this evening. Up for all meals. PT Snf Goals Snf Goals PT Snf Goals Time Frame: Nov 03, 2021 Roll Left & Right (QC): 6 Sit to Lying (QC): 6 Lying-Sitting on Side/Bed(QC): 6 Sit to Stand (QC): 6 Chair/Kai-ga-Ygjuq Xfer(QC): 6 Walk 10 feet (QC): 6 Walk 50ft with 2 Turns (QC): 6 Walk 150 ft (QC): 6 PT Plan Treatment/Plan Treatment Plan: Continue Plan of Care Treatment Plan: Bed Mobility, Education, Functional Activity Ryan, Functional Strength, Gait, Safety, Therapeutic Exercise, Transfers Treatment Duration: Nov 03, 2021 Frequency: 11 times per week Estimated Hrs Per Day: .25 hour per day Patient and/or Family Agrees t: Yes Time/GCodes Time In: 1425 Time Out: 1452 Total Billed Treatment Time: 27 Total Billed Treatment 1 visit EX 15 min GT 12 min SUSAN HUERTA PT Oct 28, 2021 15:10
[2021-10-28] MEDS ORDERED: ATOR20TA66 PO (15:50)
[2021-10-28] MEDS ORDERED: ESTR1TAB24 PO (15:50)
[2021-10-28] MEDS ORDERED: LACT1CAP61 PO (15:50)
[2021-10-28] MEDS ORDERED: PEDI18TA7 PO (15:50)
[2021-10-28] MEDS ORDERED: LEVO-129 PO (15:50)
[2021-10-28] MEDS ORDERED: MONT-40 PO (15:50)
[2021-10-28] MEDS ORDERED: SERT-414 PO (15:50)
[2021-10-28] MEDS ORDERED: IBUP-2185 PO (15:50)
[2021-10-28] MEDS ORDERED: VIT1CAPS5 PO (15:50)
--- NOTE | 2021-10-28 22:33 | DISCHARGE SUMMARY ---
DATE OF SERVICE: DIAGNOSES: 1. Right knee primary osteoarthritis. 2. Reflux. 3. Hypertension. 4. Hiatal hernia. 5. Thyroid disease. 6. Anemia. 7. Diverticulitis. 8. Hypercholesterolemia. 9. Hypokalemia. 10. Claudication. 11. Myocardial infarction. PROCEDURE: Right total knee arthroplasty. SUMMARY: The patient is a 66-year-old female with longstanding progressive right knee pain. She underwent a total knee arthroplasty on the day of admission. Postoperatively, she did well. At time of discharge, her wound was clean and dry. She had no calf tenderness. Negative Homans sign. CONDITION AT DISCHARGE: Good. DISCHARGE DIET: Regular. FOLLOWUP: Followup is in three weeks. ACTIVITIES: Weightbearing as tolerated with a walker. DISCHARGE MEDICATIONS: Home medications. Additionally, Percocet as needed for pain and one aspirin per day for 30 days. Job ID: [id number] DocumentID: [id number] Dictated Date: 10/28/2021 17:58:54 Deputy Sheriff/Investigator Date: 10/28/2021 22:32:18 Dictated By: LETY NIÑO MD
[2021-10-29] MEDS: oxyCODONE/APAP 5/325MG (PERCOCET 5) TABLET PO PRN ×2 (02:22→08:27)
[2021-10-29] MEDS: NS IV 1000 ML 1,000 ML IV SCH (02:47)
[2021-10-29 04:08] VITALS: BP 131/76
[2021-10-29 05:42] LABS: HEMOGLOBIN 11.5 g/dL (11.5-16.0)
[2021-10-29] MEDS: LEVOTHYROXINE 50 MCG (LEVOTHROID) TAB PO SCH (06:15)
[2021-10-29] MEDS: MULTIVIT W/MINERALS TAB (THERAGRAN M) PO SCH (06:15)
--- NOTE | 2021-10-29 07:07 | Progress Note ---
Standard Progress Note Progress Notes/Assess & Plan Date Seen by a Provider: Oct 29, 2021 Time Seen by a Provider: 07:06 Progress/Assessment & Plan post op check no complaints RLE--2 plus DP pulse with brisk cap refill intact DF and PF of toes and ankle sensation intac to light touch throughout s/p R TKA mobilize as able Final Diagnosis no complaints Vital Signs Date Time Temp Pulse Resp B/P (MAP) Pulse Ox O2 Delivery O2 Flow Rate FiO2 10/29/21 04:08 37.1 78 18 131/76 (94) 93 Room Air 10/28/21 23:15 36.9 83 18 120/71 (87) 96 Room Air 10/28/21 20:48 Room Air 10/28/21 19:25 36.6 81 18 151/84 (106) 92 Room Air 10/28/21 15:43 35.6 71 18 168/81 (110) 91 Room Air 10/28/21 12:40 37.2 74 18 162/79 (106) 94 Room Air 10/28/21 09:00 Nasal Cannula 2.00 10/28/21 08:38 36.9 83 18 162/79 (106) 98 Nasal Cannula 2.00 I & O 10/29/21 07:00 Intake Total 2610 ml Balance 2610 ml Laboratory Tests Test 10/29/21 05:28 Range/Units Hemoglobin 11.5 11.5-16.0 g/dL Hematocrit 35 35-52 % RLE incision clean and dry. no calf tenderness neg Clarita's s/p RTKA doing well DC after PT today LETY NIÑO MD Oct 29, 2021 07:07
[2021-10-29] MEDS ORDERED: morphine INJ 4 MG/ML 1 ML (VIAL/SYRINGE) IVP PRN (07:15)
[2021-10-29] MEDS: ASPIRIN E.C. 81 MG (ECOTRIN) TAB PO SCH (08:26)
[2021-10-29] MEDS: MONTELUKAST 10 MG (SINGULAIR) TAB PO SCH (08:26)
[2021-10-29] MEDS: SERTRALINE 100 MG (ZOLOFT) TAB PO SCH (08:26)
[2021-10-29] MEDS: ENOXAPARIN INJECTION 30 MG/0.3 ML SYR SC SCH (08:26)
[2021-10-29] MEDS: ESTRADIOL 1 MG TAB (ESTRACE) PO SCH (08:27)
[2021-10-29 08:59] VITALS: BP 159/87
--- NOTE | 2021-10-29 09:34 | Physical Therapy Daily Note ---
PT Daily Note-Current Subjective Patient agrees to PT. Pain Numeric Pain Scale: 5-Moderate Pain Location: Right Location Body Site: Knee Pain Description: Acute Section J - Health Conditions 1. Rarely or not at all 2. Occasionally 3. Frequently 4. Almost constantly 8. Unable to answer Pain Effect on Sleep: 2 Pain Interference with Therapy: 2 Pain Interference w/Day-to-Day: 2 Mental Status Patient Orientation: Normal For Age Transfers SCALE: Activities may be completed with or without assistive devices. 9-Mwbkrxdgjm-dlfeddp completes the activity by him/herself with no assistance from a helper. 5-Set-up or Clean-up Assistance-helper sets up or cleans up; patient completes activity. [place] assists only prior to or following the activity. 4-Supervision or Touching Assistance-helper provides verbal cues and/or touching/steadying and/or contact guard assistance as patient completes activity. Assistance may be provided throughout the activity or intermittently. 3-Partial/Moderate Assistance-helper does LESS THAN HALF the effort. [place] lifts, holds or supports trunk or limbs, but provides less than half the effort. 2-Substantial/Maximal Assistance-helper does MORE THAN HALF the effort. [place] lifts or holds trunk or limbs and provides more than half the effort. 8-Suqespjiw-npfvnh does ALL the effort. Patient does none of the effort to complete the activity. Or, the assistance of 2 or more helpers is required for the patient to complete the activity. If activity was not attempted, code reason: 7-Patient Refused. 9-Not Applicable-not attempted and the patient did not perform the activity befo re the current illness, exacerbation or injury. 10-Not Attempted due to Environmental Limitations-(lack of equipment, weather re straints, etc.). 88-Not Attempted due to Medical Conditions or Safety Concerns. Lying to Sitting/Side of Bed(Q: 6 Sit to Stand (QC): 6 Toilet Transfer (QC): 6 Weight Bearing Right Lower Extremity: Right Weight Bearing/Tolerated Gait Training Distance: 250' Walk 10 feet (QC): 6 Walk 50 ft with 2 Turns(QC): 6 Walk 150 ft (QC): 6 Gait Assistive Device: FWW slow, steady, step to pattern Exercises Supine Ex: Ankle pumps, Quad Set, Heel Slides, Straight leg raise Supine Reps: 15 Seated Therapy Exercises: Long arc quads Seated Reps: 15 Assessment Patient progressing per protocol. Patient right knee flexion/extension 80 degrees to 5 degrees. Patient instructed to perform HEP issued by physician at preop. Patient voices understanding. Patient to dismiss to home with spouse and home health on this date. PT Manager Progressive Care Goals Snf Goals PT Snf Goals Time Frame: Nov 03, 2021 Roll Left & Right (QC): 6 Sit to Lying (QC): 6 Lying-Sitting on Side/Bed(QC): 6 Sit to Stand (QC): 6 Chair/Yku-wm-Ndpjb Xfer(QC): 6 Walk 10 feet (QC): 6 Walk 50ft with 2 Turns (QC): 6 Walk 150 ft (QC): 6 PT Plan Treatment/Plan Treatment Plan: Discontinue PT, goals met Treatment Plan: Bed Mobility, Education, Functional Activity Ryan, Functional Strength, Gait, Safety, Therapeutic Exercise, Transfers Treatment Duration: Nov 03, 2021 Frequency: 11 times per week Estimated Hrs Per Day: .25 hour per day Patient and/or Family Agrees t: Yes Time/GCodes Time In: 715 Time Out: 741 Total Billed Treatment Time: 26 Total Billed Treatment 1 visit GT 11 min EX 15 min SUSAN HUERTA PT Oct 29, 2021 09:34
[2021-10-29] MEDS: SENNA W/DOCUSATE (SENOKOT S) TABLET PO SCH (09:52)
[2021-10-29 10:59] VITALS: BP 159/87
== END 2021-10-29 10:50 | disposition home health service (06) | DRG 470 ==
LOC: 4TH 07:20 → SURG 07:21 → 4TH 11:50
PROVIDERS: ADMIT Orthopaedic Surgery; ATTEND Orthopaedic Surgery
PROC: 0SRC0J9 Replacement of Right Knee Joint with Synthetic Substitute, Cemented, Open Approach (ICD-10-PCS; principal; 2021-10-27 09:11)
DX: M17.11 Unilateral primary osteoarthritis, right knee (principal); K57.92 Diverticulitis of intestine, part unspecified, without perforation or abscess without bleeding; K21.9 Gastro-esophageal reflux disease without esophagitis; I10 Essential (primary) hypertension; E78.00 Pure hypercholesterolemia, unspecified; I25.2 Old myocardial infarction; F32.A Depression, unspecified; E03.9 Hypothyroidism, unspecified; F41.9 Anxiety disorder, unspecified; E66.9 Obesity, unspecified; Z68.37 Body mass index [BMI] 37.0-37.9, adult; I73.9 Peripheral vascular disease, unspecified; E87.6 Hypokalemia; D64.9 Anemia, unspecified; E07.9 Disorder of thyroid, unspecified; K44.9 Diaphragmatic hernia without obstruction or gangrene
CPT/HCPCS: 36415; 73560; 85014; 85018; 86850; 86900; 86901; 94664